=== PATIENT | female | born 1985 | race African-American/Black ===

== ENCOUNTER 2022-06-10 15:00 | Outpatient (RCR) | payer MEDICARE, MEDICAID, SELFPAY | END 2022-06-11 10:47 | disposition home or self-care (01) | LOC: HO.PT 15:00 | PROVIDERS: PCP Nurse Practitioner Family; Visit Provider Psychiatry & Neurology Neurology | DX: G44.86 Cervicogenic headache (principal) | CPT/HCPCS: 97110; 97140; 97162 ==

== ENCOUNTER 2023-08-21 11:20 | Outpatient (AMB) | payer MEDICARE, MEDICAID, SELFPAY ==
[2023-08-21 11:43] VITALS: BMI 27.8
--- NOTE | 2023-08-21 11:43 | A.OFFVIS_ITS ---
Intake VS Expanded 08/21/23 11:43 08/27/23 15:00 Height 5 ft 2.5 in 5 ft 2.5 in Weight 154 lb 8.705 oz 155 lb BMI 27.8 27.9 Intake Visit Reasons: Gastroesophageal reflux disease (GERD) Allergies hydromorphone [From Dilaudid] Allergy (Verified 10/12/21 14:07) hives vomiting morphine Allergy (Verified 10/12/21 14:07) Hives vomiting HPI Nutrition Presentation Details Pt presents for M medical nutrition therapy for gastro esophageal reflux. PT was referred by Genoveva Esqueda. Pt has hx of gallbladder disorder and declines surgery Patient reports having a tendency of choosing high fat foods and fried foods which are foods that she is mostly used to. Patient expresses interest in making diet modifications . Food frequency Fruits 0 to 2 times a week Vegetables: 3 servings per week Dairy: Mostly in cheese or cheese sauce Protein foods: Reports choosing beef, turkey, a eggs cheese rarely has fish Physical activity: Daily life activities Smoking: Denies Alcohol: Denies BQU-Kwnpqfs-Sv.Jeor Equation Height 5 ft 2.5 in Weight 155 lb Resting Metabolic Rate 1341.67 Calculated Activity Level Sedentary Calories Needed to Maintain Weight 1610.00 Diagnosis Nutrition problem #1 food nutri know defi As related to (etiology) #1 diagnosis As evidenced by (sign/symptom) #1 knowledge deficit of diet Most Recent Diabetes Results: No Data to Display [facility] Social History (Updated 10/12/21 @ 14:43 by Niki Chanel MD) Household Members Other:: lives with the mother, 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 Housing: Apartment Patient Tobacco Use Status: Never used Tobacco Current occupational status: disabled Cognitive needs: No Hearing needs: No Vision needs: No Assessment & Plan Assessment & Plan (1) GERD (gastroesophageal reflux disease): Code(s): K21.9 - Gastro-esophageal reflux disease without esophagitis Plan: Wt: 70 Kg ( 07/2023 ) Est kcal needs as per MSJ: 1600 (40% carb, 30% protein/fat) Est fluid needs as per 25-30 ml/d: 2100 Est prot per day as per 1 g/kg bw: 70 Recommend fiber intake : 8-10 g per day and gradually increase to 25-28 g per day for women and 35-38 g for men or as tolerated Recommend sodium intake per day : less than 2000 mg Educated patient on: ( R = reviewed V = verbalizes understanding N/R = needs review N/A = not applicable * Food sources of carbohydrate, adequate serving sizes and its role in various health conditions: N/R * Differences between complex carbohydrates a simple carbohydrates, role of fiber in diet: N/R * Lean protein sources of foods: R * Differences between types of fats and role in diet (mono on saturated fat fatty acids, saturated fatty acids, trans fats): R * Food sources of sodium in salt and healthy modifications for heart health in kidney health: NR * Vitamins and minerals: N/R * Healthy plate method concept: R * Physical activity: Benefits a precaution: R Patient Instructions: Work on reduced on fat in your diet, by choosing baked foods instead of fried, okay to use air Fryer Make a habit of choosing a yogurt or fruit as a snack instead of pastries once a day Keep a food record and bring to your next follow-up for review Coding Level of Care Code Nutr Indiv Intake (84159) Diagnoses GERD (gastroesophageal reflux disease) K21.9 Time Spent (min) 30
[2023-08-27 15:00] VITALS: BMI 27.9
== END 2023-08-21 12:15 | disposition home or self-care (01) ==
PROVIDERS: PCP Internal Medicine; Visit Provider Dietitian, Registered
DX: K21.9 Gastro-esophageal reflux disease without esophagitis (principal)

== ENCOUNTER → 2023-08-21 11:20 | Outpatient (BNVA) | payer MEDICARE, MEDICAID, SELFPAY | PROVIDERS: PCP Internal Medicine; Visit Provider Dietitian, Registered | DX: K21.9 Gastro-esophageal reflux disease without esophagitis (principal); Z71.3 Dietary counseling and surveillance | CPT/HCPCS: 97802 ==

== ENCOUNTER 2023-10-09 12:21 | Outpatient (AMB) | payer MEDICARE, MEDICAID, SELFPAY ==
[2023-10-09 12:30] VITALS: BMI 28.1
--- NOTE | 2023-10-09 12:30 | A.OFFVIS_ITS ---
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 Housing: Apartment Patient Tobacco Use Status: Never used Tobacco Current occupational status: disabled Cognitive needs: No Hearing needs: No Vision needs: No Assessment & Plan Assessment & Plan (1) GERD (gastroesophageal reflux disease): Code(s): K21.9 - Gastro-esophageal reflux disease without esophagitis Category: Medical Plan: Wt: 70 Kg ( 07/2023 ) Est kcal needs as per MSJ: 1600 (40% carb, 30% protein/fat) Est fluid needs as per 25-30 ml/d: 2100 Est prot per day as per 1 g/kg bw: 70 Recommend fiber intake : 8-10 g per day and gradually increase to 25-28 g per day for women and 35-38 g for men or as tolerated Recommend sodium intake per day : less than 2000 mg Educated patient on: ( R = reviewed V = verbalizes understanding N/R = needs review N/A = not applicable * Food sources of carbohydrate, adequate serving sizes and its role in various health conditions: N/R * Differences between complex carbohydrates a simple carbohydrates, role of fiber in diet: N/R * Lean protein sources of foods: R * Differences between types of fats and role in diet (mono on saturated fat fatty acids, saturated fatty acids, trans fats): R * Food sources of sodium in salt and healthy modifications for heart health in kidney health: NR * Vitamins and minerals: N/R * Healthy plate method concept: R * Physical activity: Benefits a precaution: R Patient Instructions: keep a food log engage in physical activity - walking/dancing at least 2 times a week Reduce on fat when cooking, by steaming , ok to had a bit of honey, choose one fat in your salad: 1 tbsp cheese or clayton bits or 6 olives or 2 tbsp avocado Continue working on reducing fried foods Coding Level of Care Code Nutr Indiv Subseq ([id number]) Diagnoses GERD (gastroesophageal reflux disease) K21.9 Time Spent (min) 30
== END 2023-10-09 13:04 | disposition home or self-care (01) ==
PROVIDERS: PCP Internal Medicine; Visit Provider Dietitian, Registered
DX: K21.9 Gastro-esophageal reflux disease without esophagitis (principal)

== ENCOUNTER → 2023-10-09 12:21 | Outpatient (BNVA) | payer MEDICARE, MEDICAID, SELFPAY | PROVIDERS: PCP Internal Medicine; Visit Provider Dietitian, Registered | DX: K21.9 Gastro-esophageal reflux disease without esophagitis (principal); Z68.28 Body mass index [BMI] 28.0-28.9, adult; Z71.3 Dietary counseling and surveillance | CPT/HCPCS: 97803 ==

== ENCOUNTER 2023-12-04 11:33 | Outpatient (AMB) | payer MEDICARE, MEDICAID, SELFPAY ==
[2023-12-04 11:41] VITALS: BMI 28.6
--- NOTE | 2023-12-04 11:41 | A.OFFVIS_ITS ---
VS Expanded 12/04/23 11:41 Height 5 ft 2.2 in Weight 157 lb 3.033 oz BMI 28.6 Intake Visit Reasons: GERD/CONFIRMED Allergies hydromorphone [From Dilaudid] Allergy (Verified 10/12/21 14:07) hives vomiting morphine Allergy (Verified 10/12/21 14:07) Hives vomiting Nutrition Presentation Details: Pt presents for MNT f/u for GERD Pt reports doing ok, working on reducing on fatty and acidic foods, keeping sedentary BS Monitoring Most Recent Diabetes Results: No Data to Display [facility] Social History (Updated 10/12/21 @ 14:43 by Niki Chanel MD) Household Members Other:: lives with the mother, 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 Housing: Apartment Patient Tobacco Use Status: Never used Tobacco Current occupational status: disabled Cognitive needs: No Hearing needs: No Vision needs: No Assessment & Plan Assessment & Plan (1) GERD (gastroesophageal reflux disease): Code(s): K21.9 - Gastro-esophageal reflux disease without esophagitis Category: Medical Plan: Wt: 70 Kg ( 07/2023 ), 71 kg (11/2023) Est kcal needs as per MSJ: 1600 (40% carb, 30% protein/fat) Est fluid needs as per 25-30 ml/d: 2100 Est prot per day as per 1 g/kg bw: 70 Recommend fiber intake : 8-10 g per day and gradually increase to 25-28 g per day for women and 35-38 g for men or as tolerated Recommend sodium intake per day : less than 2000 mg Educated patient on: ( R = reviewed V = verbalizes understanding N/R = needs review N/A = not applicable * Food sources of carbohydrate, adequate serving sizes and its role in various health conditions: N/R * Differences between complex carbohydrates a simple carbohydrates, role of fiber in diet: N/R * Lean protein sources of foods: R * Differences between types of fats and role in diet (mono on saturated fat fatty acids, saturated fatty acids, trans fats): R * Food sources of sodium in salt and healthy modifications for heart health in kidney health: NR * Vitamins and minerals: N/R * Healthy plate method concept: R * Physical activity: Benefits a precaution: R Patient Instructions: Continue working on reducing on acidic foods (sauces, caffeine, high fat foods ) Engage in walks as part of healthy routine Coding Level of Care Code Nutr Indiv Subseq ([id number]) Diagnoses GERD (gastroesophageal reflux disease) K21.9 Time Spent (min) 20
== END 2023-12-04 12:12 | disposition home or self-care (01) ==
PROVIDERS: PCP Internal Medicine; Visit Provider Dietitian, Registered
DX: K21.9 Gastro-esophageal reflux disease without esophagitis (principal)

== ENCOUNTER → 2023-12-04 11:33 | Outpatient (BNVA) | payer MEDICARE, MEDICAID, SELFPAY | PROVIDERS: PCP Internal Medicine; Visit Provider Dietitian, Registered | DX: K21.9 Gastro-esophageal reflux disease without esophagitis (principal) | CPT/HCPCS: 97803 ==

== ENCOUNTER 2024-04-08 11:17 | Outpatient (AMB) | payer MEDICARE, MEDICAID, SELFPAY ==
[2024-04-08 11:33] VITALS: BMI 29.2
--- NOTE | 2024-04-08 11:33 | A.OFFVIS_ITS ---
VS Expanded 04/08/24 11:33 Height 5 ft 2 in Weight 159 lb 13.362 oz BMI 29.2 Intake Visit Reasons: GERD/Confirmed Allergies hydromorphone [From Dilaudid] Allergy (Verified 10/12/21 14:07) hives vomiting morphine Allergy (Verified 10/12/21 14:07) Hives vomiting Nutrition Presentation Details: Pt presents for MNT f/u for GERD Pt is concerned about weight gain, tends to eat out frequently Today will review calorie reduction BS Monitoring Most Recent Diabetes Results: No Data to Display [facility] Social History (Updated 10/12/21 @ 14:43 by Niki Chanel MD) Household Members Other:: lives with the mother, 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 Housing: Apartment Patient Tobacco Use Status: Never used Tobacco Current occupational status: disabled Cognitive needs: No Hearing needs: No Vision needs: No Assessment & Plan Assessment & Plan (1) GERD (gastroesophageal reflux disease): Code(s): K21.9 - Gastro-esophageal reflux disease without esophagitis Category: Medical Plan: Wt: 70 Kg ( 07/2023 ), 71 kg (11/2023) Est kcal needs as per MSJ: 12-1600 (40% carb, 30% protein/fat) Est fluid needs as per 25-30 ml/d: 2100 Est prot per day as per 1 g/kg bw: 70 Recommend fiber intake : 8-10 g per day and gradually increase to 25-28 g per day for women and 35-38 g for men or as tolerated Recommend sodium intake per day : less than 2000 mg Educated patient on: ( R = reviewed V = verbalizes understanding N/R = needs review N/A = not applicable * Food sources of carbohydrate, adequate serving sizes and its role in various health conditions: N/R * Differences between complex carbohydrates a simple carbohydrates, role of fiber in diet: N/R * Lean protein sources of foods: R * Differences between types of fats and role in diet (mono on saturated fat fatty acids, saturated fatty acids, trans fats): R * Food sources of sodium in salt and healthy modifications for heart health in kidney health: NR * Vitamins and minerals: N/R * Healthy plate method concept: R * Physical activity: Benefits a precaution: R * calorie content of foods Patient Instructions: * Work at reducing tolal calories to less than 1500 per day- * Coding Level of Care Code Nutr Indiv Subseq ([id number]) Diagnoses GERD (gastroesophageal reflux disease) K21.9 Time Spent (min) 30
== END 2024-04-08 12:13 | disposition home or self-care (01) ==
PROVIDERS: PCP Internal Medicine; Visit Provider Dietitian, Registered
DX: K21.9 Gastro-esophageal reflux disease without esophagitis (principal)

== ENCOUNTER → 2024-04-08 11:17 | Outpatient (BNVA) | payer MEDICARE, MEDICAID, SELFPAY | PROVIDERS: PCP Internal Medicine; Visit Provider Dietitian, Registered | DX: K21.9 Gastro-esophageal reflux disease without esophagitis (principal) | CPT/HCPCS: 97803 ==